=== PATIENT | male | born 1970 | race Hispanic/Latino ===

== ENCOUNTER 2017-06-25 10:12 | Emergency (ER) | payer BC ==
--- NOTE | 2017-06-25 11:21 | RAD REPORT ---
EXAM DESCRIPTION: US - Abdomen Exam Limited - 06/25/2017 11:11 am CLINICAL HISTORY: Abdominal pain. COMPARISON: None. FINDINGS: The gallbladder demonstrates no gallstones. No pericholecystic fluid or gallbladder wall t hickening. The common bile duct is normal measuring 2-3 mm. The liver demonstrates fatty liver infiltration. IMPRESSION: Negative gallbladder findings. Fatty liver.
[2017-06-25 11:27] LABS: Absolute Lymphocytes (CBC) 3.3 K/uL (0.7-4.9); Absolute Monocytes 0.5 K/uL (0.1-1.3); Absolute Neutrophil 4.7 K/uL (1.8-8.0); Basophils % 0.7 % (0-1.3); Eosinophils % 1.4 % (0-4.4); Hematocrit 42.9 % (39.6-49.0); Lymphocytes % 37.6 % (15.3-44.8); MCH 29.7 pg (27.0-35.0); MCV 87.2 fL (80-100); MPV 8.1 fL (7.6-11.3); Monocytes % 6.2 % (3.3-12.3); RBC Red Blood Cell Count 4.92 M/uL (4.33-5.43)
[2017-06-25 11:33] LABS: Urine Blood NEGATIVE (NEG); Urine Glucose NEGATIVE (NEG); Urine Protein 1+ (NEG); Urine Specific Gravity 1.015 (1.005-1.030); Urine pH 6.5 (5.0-7.0)
[2017-06-25 11:34] LABS: Bicarbonate 28 mEq/L (21-31); Glucose Level 183 mg/dL (65-120); Potassium 3.9 mEq/L (3.6-5.0); Sodium Level 138 mEq/L (135-145)
[2017-06-25 11:41] LABS: ALT/SGPT 37 IU/L (10-60); AST/SGOT 36 IU/L (10-42); Alkaline Phosphatase 59 IU/L (42-121); BUN Blood Urea Nitrogen 12 mg/dL (6-20); Bilirubin Direct 0.1 mg/dL (0-0.2); Bilirubin Total 0.7 mg/dL (0.3-1.2); Protein, Total 7.3 g/dL (6.0-8.3)
[2017-06-25] MEDS ORDERED: NA CHLORIDE 0.9% 1,000 ML ONE (11:43)
[2017-06-25] MEDS ORDERED: MORPHINE 4 MG/ML SYR ONE (11:43)
[2017-06-25] MEDS ORDERED: ONDANSETRON 4 MG/2 ML VIAL ONE (11:44)
--- NOTE | 2017-06-25 12:34 | RAD REPORT ---
EXAM DESCRIPTION: CT - Abdomen Pelvis W Contrast - 06/25/2017 12:21 pm CLINICAL HISTORY: Right upper quadrant pain, nausea COMPARISON: None. TECHNIQUE: Biphasic, helical CT imaging of the abdomen and pelvis was performed following 100 ml non -ionic IV contrast. No oral contrast administered. All CT scans are performed using dose optimization technique as appropriate and may include automated exposure control or mA/KV adjustment according to patient size. FINDINGS: No suspicious findings in the lung bases. The liver, spleen, and pancreas show no focal findings. Liver shows a mild diffuse fatty infiltration pattern. No gallbladder or biliary tree abnormality seen. Gallstones can be occult. Active gallbladd er process is doubtful. Symmetric renal function is seen with no hydronephrosis or suspicious renal mass. No pyelonephritis o r acute renal parenchymal process seen. Benign cysts are present in the left kidney. Largest cyst is medial upper pole 3.3 cm. No suspicious bladder finding. Ureteral jets are seen on the venous phase i maging. Prostate gland and seminal vesicles are normal range. No gastric dilatation or gastric wall thickening. No dilated large or small bowel. Appendix is normal . No acute GI process identifiable. No free air, free fluid or inflammatory stranding. No hernia, m ass or bulky lymphadenopathy. No adrenal abnormality. No suspicious bony findings. IMPRESSION: Fatty infiltration of the liver. No significant or suspicious CT finding to explain padmini ent's symptoms.
[2017-06-25 12:37] LABS: Lipase 24 U/L (22-51)
--- NOTE | 2017-06-25 12:46 | ER ---
Nurse's Notes [facility] Name: Lorenzo Tovar Age: 47 yrs Sex: Male : 1970 Arrival Date: 06/25/2017 Time: 10:17 Bed 25 Private MD: Diagnosis: Upper abdominal pain, unspecified Presentation: 06/25 10:27 Presenting complaint: Patient states: RUQ pain and nausea since last night. Pt denies aa5 vomiting, denies diarrhea. Pt reports last BM was today around 7 but it was only a small amount. Transition of care: patient was not received from another setting of care. Onset of symptoms was June 24, 2017. Initial Sepsis Screen: Does the patient meet any 2 criteria? No. Patient's initial sepsis screen is negative. Does the patient have a suspected source of infection? No. Patient's initial sepsis screen is negative. Care prior to arrival: None. 10:27 Method Of Arrival: Ambulatory aa5 10:27 Acuity: ANTONINA 3 aa5 Historical: - Allergies: 10:28 No Known Allergies; aa5 - PMHx: 10:28 Diabetes - NIDDM; Hypertension; aa5 - PSHx: 10:28 None; aa5 - Immunization history:: Adult Immunizations unknown. - Social history:: Smoking status: Patient/guardian denies using tobacco. - Family history:: not pertinent. - Hospitalizations: : No recent hospitalization is reported. Screenin:50 Abuse screen: Denies threats or abuse. Denies injuries from another. Nutritional aj1 screening: No deficits noted. Tuberculosis screening: No symptoms or risk factors identified. Assessment: 10:50 General: Appears in no apparent distress. uncomfortable, Behavior is calm, cooperative, aj1 appropriate for age. Pain: Complains of pain in right upper quadrant Pain does not radiate. Neuro: Level of Consciousness is awake, alert, obeys commands, Oriented to person, place, time, situation, Speech is normal, Facial symmetry appears normal. Cardiovascular: Patient's skin is warm and dry. Respiratory: Airway is patent Respiratory effort is even, unlabored, Respiratory pattern is regular, symmetrical. GI: Abdomen is non-distended, Bowel sounds present X 4 quads. Abd is soft X 4 quads. : No signs and/or symptoms were reported regarding the genitourinary system. EENT: No signs and/or symptoms were reported regarding the EENT system. Derm: No signs and/or symptoms reported regarding the dermatologic system. Skin is pink, warm \T\ dry. normal. Musculoskeletal: No signs and/or symptoms reported regarding the musculoskeletal system. Circulation, motion, and sensation intact. 10:59 Reassessment: Ultrasound at bedside. aj1 11:50 Reassessment: Patient appears in no apparent distress at this time. No changes from aj1 previously documented assessment. Patient and/or family updated on plan of care and expected duration. Pain level reassessed. Patient is alert, oriented x 3, equal unlabored respirations, skin warm/dry/pink. 12:33 Reassessment: Patient appears in no apparent distress at this time. No changes from aj1 previously documented assessment. Patient and/or family updated on plan of care and expected duration. Pain level reassessed. Patient is alert, oriented x 3, equal unlabored respirations, skin warm/dry/pink. 13:15 Reassessment: Patient is alert, oriented x 3, equal unlabored respirations, skin aa5 warm/dry/pink. Vital Signs: 10:28 BP 143 / 100; Pulse 86; Resp 18 S; Temp 97.8(TE); Pulse Ox 97% on R/A; Weight 95.25 kg aa5 (R); Height 5 ft. 8 in. (172.72 cm) (R); Pain 8/10; 11:45 BP 148 / 97; Pulse 68; Resp 18; Temp 97.9; Pulse Ox 98% on R/A; em1 12:33 BP 130 / 86; Pulse 72; Resp 18; Pulse Ox 96% on R/A; aj1 10:28 Body Mass Index 31.93 (95.25 kg, 172.72 cm) aa5 ED Course: 10:17 Patient arrived in ED. sb2 10:28 Triage completed. aa5 10:28 Arm band placed on. aa5 10:30 Kirit De Jesus MD is Attending Physician. rn 10:50 Adriana King, BASSEM is Primary Nurse. aj1 10:50 Patient has correct armband on for positive identification. Bed in low position. Call aj1 light in reach. Side rails up X 1. 10:50 No provider procedures requiring assistance completed. aj1 11:08 Ultrasound completed. Patient tolerated well. hr 11:10 US Abdomen Limited In Process Unspecified. EDMS 11:24 Initial lab(s) drawn, by me, sent to lab. Inserted saline lock: 20 gauge in left em1 antecubital area, using aseptic technique. Blood collected. 12:14 CT completed. Patient tolerated procedure well. Patient moved to CT via wheelchair. 12:21 CT Abd/Pelvis - W/Contrast In Process Unspecified. EDMS 13:15 IV discontinued, intact, bleeding controlled, No redness/swelling at site. Pressure aa5 dressing applied. Administered Medications: 11:53 Drug: Zofran 4 mg Route: IVP; Site: right antecubital; aj1 11:53 Drug: NS 0.9% 1000 ml Route: IV; Rate: 1000 ml; Site: right antecubital; aj1 11:53 Drug: morphine 4 mg Route: IVP; Site: right antecubital; aj1 Outcome: 12:45 Discharge ordered by MD. rn 13:18 Discharged to home ambulatory, with significant other. aa5 13:18 Condition: stable 13:18 Discharge instructions given to patient, family, Instructed on discharge instructions, follow up and referral plans. Demonstrated understanding of instructions, follow-up care. 13:20 Patient left the ED. aa5 Signatures: Dispatcher [employer] EDMS Adriana King RN RN aj1 Cookie Hines Roman, MD MD rn Martinez, Delgado em1 Felecia Pyle RN RN aa5 Savannah Wheeler Sheri sb2
--- NOTE | 2017-06-25 12:46 | EDPHYS ---
Physician Documentation [facility] Name: Lorenzo Tovar Age: 47 yrs Sex: Male : 1970 Arrival Date: 06/25/2017 Time: 10:17 Bed 25 Private MD: ED Physician Kirit De Jesus HPI: 06/25 10:51 This 47 yrs old Male presents to ER via Ambulatory with complaints of rn Abdominal Pain. 10:51 The patient presents with abdominal pain in the right upper quadrant. Onset: The rn symptoms/episode began/occurred last night. The symptoms do not radiate. Associated signs and symptoms: Pertinent positives: nausea, Pertinent negatives: blood in stools, fever, shortness of breath. The symptoms are described as sharp, stabbing. Modifying factors: The symptoms are alleviated by nothing, the symptoms are aggravated by touching the area. Severity of pain: At its worst the pain was moderate in the emergency department the pain is unchanged. The patient has experienced similar episodes in the past. The patient has not recently seen a physician. Historical: - Allergies: 10:28 No Known Allergies; aa5 - PMHx: 10:28 Diabetes - NIDDM; Hypertension; aa5 - PSHx: 10:28 None; aa5 - Immunization history:: Adult Immunizations unknown. - Social history:: Smoking status: Patient/guardian denies using tobacco. - Family history:: not pertinent. - Hospitalizations: : No recent hospitalization is reported. ROS: 10:51 Constitutional: Negative for fever, chills, and weight loss, Eyes: Negative for injury, rn pain, redness, and discharge, Neck: Negative for injury, pain, and swelling, Cardiovascular: Negative for chest pain, palpitations, and edema, Respiratory: Negative for shortness of breath, cough, wheezing, and pleuritic chest pain, Abdomen/GI: + ruq abd pain Back: Negative for injury and pain, MS/Extremity: Negative for injury and deformity, Skin: Negative for injury, rash, and discoloration, Neuro: Negative for headache, weakness, numbness, tingling, and seizure. Exam: 10:51 Constitutional: This is a well developed, well nourished patient who is awake, alert, rn and in no acute distress. Head/Face: Normocephalic, atraumatic. Eyes: Pupils equal round and reactive to light, extra-ocular motions intact. Lids and lashes normal. Conjunctiva and sclera are non-icteric and not injected. Cornea within normal limits. Periorbital areas with no swelling, redness, or edema. Cardiovascular: Regular rate and rhythm with a normal S1 and S2. No gallops, murmurs, or rubs. Normal PMI, no JVD. No pulse deficits. Respiratory: Lungs have equal breath sounds bilaterally, clear to auscultation and percussion. No rales, rhonchi or wheezes noted. No increased work of breathing, no retractions or nasal flaring. Abdomen/GI: soft, + RUQ tenderness, no rebound MS/ Extremity: Pulses equal, no cyanosis. Neurovascular intact. Full, normal range of motion. Equal circumference. Neuro: Awake and alert, GCS 15, oriented to person, place, time, and situation. Cranial nerves II-XII grossly intact. Motor strength 5/5 in all extremities. Sensory grossly intact. Cerebellar exam normal. Normal gait. 12:08 ECG was reviewed by the Attending Physician. rn Vital Signs: 10:28 BP 143 / 100; Pulse 86; Resp 18 S; Temp 97.8(TE); Pulse Ox 97% on R/A; Weight 95.25 kg aa5 (R); Height 5 ft. 8 in. (172.72 cm) (R); Pain 8/10; 11:45 BP 148 / 97; Pulse 68; Resp 18; Temp 97.9; Pulse Ox 98% on R/A; em1 12:33 BP 130 / 86; Pulse 72; Resp 18; Pulse Ox 96% on R/A; aj1 10:28 Body Mass Index 31.93 (95.25 kg, 172.72 cm) aa5 MDM: 10:31 Patient medically screened. rn 12:44 Differential diagnosis: cholecystitis, Cholelithiasis, gastritis, gastroesophageal rn reflux disease, Hepatitis, non-specific abd pain, pancreatitis, Peptic Ulcer Disease, Ureterolithiasis. Data reviewed: vital signs, nurses notes, lab test result(s), EKG, radiologic studies, CT scan, ultrasound, and as a result, I will discharge patient. Counseling: I had a detailed discussion with the patient and/or guardian regarding: the historical points, exam findings, and any diagnostic results supporting the discharge/admit diagnosis, lab results, radiology results, the need for outpatient follow up, to return to the emergency department if symptoms worsen or persist or if there are any questions or concerns that arise at home. Response to treatment: the patient's symptoms have mildly improved after treatment, and as a result, I will discharge patient. Special discussion: Based on the patient's Hx, exam, and Dx evaluation, there is no indication for emergent surgery or inpatient Tx. It is understood by the patient/guardian that if the Sx's persist or worsen they need to return immediately for re-evaluation. I discussed with the patient/guardian in detail that at this point there is no indication for admission to the hospital. It is understood, however, that if the symptoms persist or worsen the patient needs to return immediately for re-evaluation. Based on the history and exam findings, there is no indication for further emergent testing or inpatient evaluation. I discussed with the patient/guardian the need to see the courier driver for further evaluation of the symptoms. 06/25 10:41 Order name: Basic Metabolic Panel; Complete Time: 12:40 rn 06/25 10:41 Order name: CBC with Diff; Complete Time: 12: rn 06/25 10:41 Order name: Creatinine for Radiology; Complete Time: 12:41 rn 06/25 10:41 Order name: Hepatic Function; Complete Time: 12:41 rn 06/25 10:41 Order name: Lipase; Complete Time: 12:41 rn 06/25 11:24 Order name: Urine Dipstick--Ancillary (enter results); Complete Time: 12:41 bd 06/25 10:41 Order name: IV Saline Lock; Complete Time: 11:24 rn 06/25 10:41 Order name: Labs collected and sent; Complete Time: 11:24 rn 06/25 10:41 Order name: US Abdomen Limited; Complete Time: 11:22 rn 06/25 10:41 Order name: EKG; Complete Time: 10:41 rn 06/25 11:23 Order name: CT Abd/Pelvis - W/Contrast; Complete Time: 12:41 rn 06/25 10:41 Order name: EKG - Nurse/Tech; Complete Time: 10:50 rn EC:08 Rate is 73 beats/min. Rhythm is regular. QRS Lindrith is Normal. MD interval is normal. QRS rn interval is normal. QT interval is normal. No Q waves. T waves are Normal. No ST changes noted. Clinical impression: Normal ECG. Interpreted by me. Administered Medications: 11:53 Drug: Zofran 4 mg Route: IVP; Site: right antecubital; aj1 11:53 Drug: NS 0.9% 1000 ml Route: IV; Rate: 1000 ml; Site: right antecubital; aj1 11:53 Drug: morphine 4 mg Route: IVP; Site: right antecubital; [facility] Disposition: 06/25/17 12:45 Discharged to Home. Impression: Upper abdominal pain, unspecified. - Condition is Stable. - Discharge Instructions: Abdominal Pain, Adult, Gastroesophageal Reflux Disease, Adult. - Medication Reconciliation Form, Thank You Letter, Antibiotic Education, Prescription Opioid Use, Work release form form. - Follow up: Private Physician; When: As needed; Reason: Recheck today's complaints, Re-evaluation by your physician. - Problem is new. - Symptoms have improved. Signatures: Dispatcher [employer] EDMS Adriana King RN RN aj1 Kirit De Jesus MD MD rn Calderon, Audri, RN RN aa5 Corrections: (The following items were deleted from the chart) 13:20 12:45 06/25/2017 12:45 Discharged to Home. Impression: Upper abdominal pain, aa5 unspecified. Condition is Stable. Forms are Medication Reconciliation Form, Thank You Letter, Antibiotic Education, Prescription Opioid Use. Follow up: Private Physician; When: As needed; Reason: Recheck today's complaints, Re-evaluation by your physician. Problem is new. Symptoms have improved. rn
--- NOTE | 2017-06-25 15:27 | EKG ---
Test Date: 2017-06-25 Test Time: 10:48:22 [employer] Sales Director: CASSIE MEASUREMENT RESULTS: Intervals: Rate: 73 DE: 158 QRSD: 94 QT: 366 QTc: 403 Mcguffey: P: 11 DE: 158 QRS: -21 T: 6 INTERPRETIVE STATEMENTS: Normal sinus rhythm Normal ECG No previous ECG available for comparison Electronically Signed On 06-25-17 15:25:45 CDT by Ottoniel Bhatti
== END 2017-06-25 13:20 | disposition home or self-care (01) ==
LOC: ER 10:12
DX: R10.11 Right upper quadrant pain (principal); I10 Essential (primary) hypertension
CPT/HCPCS: 36415; 74177; 76705; 80048; 80076; 81003; 83690; 85025; 93005; 96374; 96375; 99284; J2405; J7030; Q9967